=== PATIENT | female | born 1995 | race Caucasian/White ===

== ENCOUNTER 2023-10-17 21:51 | Emergency (ER) | payer OTHER, MEDICAID ==
[2023-10-17] VITALS (8 sets, daily range): BP systolic 90–112; BP diastolic 38–74
[2023-10-17] MEDS ORDERED: ACETAMINOPHEN 500 MG TAB PO ONE (22:15)
[2023-10-17] MEDS ORDERED: IBUPROFEN 600 MG/TAB PO ONE (22:20)
[2023-10-18] VITALS (9 sets, daily range): BP systolic 83–116; BP diastolic 42–70
[2023-10-18] MEDS ORDERED: traMADol HCL 50 MG/TAB PO ONE (00:30)
[2023-10-18] MEDS ORDERED: VOLTAREN - GENE75 MG PO (01:29)
== END 2023-10-18 01:41 | disposition home or self-care (01) | DRG 563 ==
LOC: ED 21:51
DX: S96.912A Strain of unspecified muscle and tendon at ankle and foot level, left foot, initial encounter (principal); S86.912A Strain of unspecified muscle(s) and tendon(s) at lower leg level, left leg, initial encounter; S76.012A Strain of muscle, fascia and tendon of left hip, initial encounter; V49.40XA Driver injured in collision with unspecified motor vehicles in traffic accident, initial encounter